=== PATIENT | male | born 1970 | race Caucasian/White ===

== ENCOUNTER 2022-10-05 15:42 | Emergency (ER) | payer OTHER, SELFPAY ==
[2022-10-05 15:48] VITALS: BP 168/98; PULSE 93; RESP 16; TEMP 36.8; O2SAT 99; BMI 43.0
--- NOTE | 2022-10-05 16:06 | ED_ITS ---
HPI - GI Bleed General: Chief complaint: GI Bleed Stated complaint: bloody stool Time Seen by Provider: 10/05/22 15:46 Source: patient Mode of arrival: ambulatory History of Present Illness: 51-year-old male presents emergency room complaining of 3 episodes of bloody stools. He felt dizzy. He felt a little better reports after eating. No vomiting no diarrhea no fever sweats chills no abdominal pain he has had probably hemorrhoids in the past no active hemorrhoids that he has noticed. No dysuria urgency or frequency or hematuria. MD complaint: gross hematochezia Onset (ago): hour(s) Pain Consistency: intermittent Severity: mild Relieving factors: none Exacerbating factors: none Associated symptoms: Denies abdominal pain, chills, easy bruising, epistaxis, fever(s), headache(s), malaise, nausea, other bleeding, rash, syncope, vomiting or weakness Treatments Prior to Arrival: none Review of Systems Const: Denies: fever(s), chills or malaise ENMT: Denies: epistaxis Card: Denies: syncope Resp: Denies: dyspnea, productive cough or non-productive cough GI: Denies: abdominal pain, nausea or vomiting : Denies: flank pain, dysuria, urinary frequency or urinary urgency Skin/Breast: Denies: rash Neuro: Denies: headache(s) Tomi/Lymph: Denies: easy bruising PFS ED PFSH: Medical History (Updated 10/05/22 @ 17:05 by Jose Alejo DO) No significant past medical history Surgical History (Updated 10/05/22 @ 16:19 by Jose Alejo DO) No pertinent past surgical history Physical Exam Const: COMMON NORMALS: no acute distress GENERAL APPEARANCE: cooperative and comfortable ORIENTATION/CONSCIOUSNESS: Yes awake, Yes oriented to person, Yes oriented to place and Yes oriented to time HENMT: COMMON NORMALS: normocephalic, atraumatic and hearing grossly normal bilaterally HEAD & SCALP: normocephalic and atraumatic Resp: COMMON NORMALS: normal respiratory effort, No retractions, No use of accessory muscles and clear to auscultation bilaterally AUSCULTATION: clear to auscultation bilaterally Cardio: COMMON NORMALS: regular rate, regular rhythm and No murmurs present (Cardio) RATE: regular rate RHYTHM: regular rhythm GI: COMMON NORMALS: Soft to palpation and No hepatosplenomegaly present AUSCULTATION: Yes normoactive bowel sounds PALPATION: Yes Soft to palpation, No Tenderness to palpation present (GI), No Guarding due to palpation present (GI) and Yes No hepatosplenomegaly present RECTAL EXAM: Yes visual inspection normal OTHER: 5 mm round ulcer at the rectal verge at approximately the 6 o'clock position no active bleeding no bright red blood per rectum noted no inflamed or thrombosed hemorrhoids Extremity: COMMON NORMALS: normal to inspection, capillary refill normal, no clubbing, cyanosis or edema, no calf tenderness and no pedal edema Neuro: SENSORIUM/ORIENTATION: Yes oriented to person, Yes oriented to place and Yes oriented to time Skin: COMMON NORMALS: no rashes or lesions noted GENERAL SKIN EXAM: no rashes or lesions noted Course Vital Signs: Vital signs: Vital Signs Temperature 98.2 F 10/05/22 15:48 Pulse Rate 93 10/05/22 15:48 Respiratory Rate 16 10/05/22 15:48 Blood Pressure 168/98 10/05/22 15:48 Pulse Oximetry 99 10/05/22 15:48 Oxygen Delivery Me thod 10/05/22 15:48 MDM - GI Bleed Medical Decision Making Hemoglobin normal CT does not show any significant abnormalities no diverticulitis no evidence of mass. On exam there was no perirectal abscess or hemorrhoid. There is an ulcerated area adjacent to the rectum where I suspect blood is coming from. At this point can use topical [id number] antibiotic ointment for that. He did have a colonoscopy about 3 to 4 years ago which he states was normal follow-up with his primary care doctor is a family history of colon cancer. Advised patient there is no masses or abnormality seen in the CT at this time. Also advised that his hemoglobin is stable. If he has persistent bleeding follow-up primary care doctor for recheck of his blood counts. Medical Records I reviewed the patient's medical records. Lab Data I reviewed the patient's lab results. 10/05/22 16:00 10/05/22 16:00 Radiology Impressions Abdomen/Pelvis CT 10/05/22 16:06 IMPRESSION: 1. Negative for acute inflammatory process in the abdomen or pelvis. 2. Central abdominal mesentery edema with several subcentimeter lymph nodes may reflect a chronic inflammatory process such as sclerosing mesenteritis. Laboratory Results WBC 13.4 10^3/uL (4.0-10.0) H 10/05/22 16:00 RBC 4.15 10^6/uL (4.1-5.3) 10/05/22 16:00 Hgb 13.1 g/dL (11.7-16.6) 10/05/22 16:00 Hct 39.3 % (42.0-52.0) L 10/05/22 16:00 MCV 94.7 fl (80-94) H 10/05/22 16:00 MCH 31.6 pg (28.0-34.0) 10/05/22 16:00 MCHC 33.3 g/dL (30.0-36.0) 10/05/22 16:00 RDW 12.5 % (12.1-15.1) 10/05/22 16:00 Plt Count 269 10^3/cmm (130-400) 10/05/22 16:00 MPV 9.6 fL (7.4-10.4) 10/05/22 16:00 Neut % (Auto) 73.1 % 10/05/22 16:00 Lymph % (Auto) 17.4 % 10/05/22 16:00 [place] % (Auto) 6.1 % 10/05/22 16:00 Eos % (Auto) 2.3 % 10/05/22 16:00 Baso % (Auto) 0.8 % 10/05/22 16:00 Neut # (Auto) 9.79 10^3/uL (1.8-7.7) H 10/05/22 16:00 Lymph # (Auto) 2.3 10^3/uL (0.8-4.8) 10/05/22 16:00 [place] # (Auto) 0.8 10^3/uL (0.2-0.9) 10/05/22 16:00 Eos # (Auto) 0.3 10^3/uL (0.0-0.8) 10/05/22 16:00 Baso # (Auto) 0.1 10^3/uL (0.0-0.1) 10/05/22 16:00 Nucleated RBC % (auto) 0 % 10/05/22 16:00 Nucleated RBCs # 0.0 /100WBC 10/05/22 16:00 Sodium 139 mmol/L (136-145) 10/05/22 16:00 Potassium 4.2 mmol/L (3.5-5.1) 10/05/22 16:00 Chloride 102 mmol/L (98-107) 10/05/22 16:00 Carbon Dioxide 28 mmol/L (22-29) 10/05/22 16:00 Anion Gap 13.2 (5-19) 10/05/22 16:00 BUN 14 mg/dL (6-20) 10/05/22 16:00 Creatinine 0.9 mg/dL (0.7-1.2) 10/05/22 16:00 GFR Calculation 89.3 mL/min (90-130) L 10/05/22 16:00 Glucose 142 mg/dL (65-115) H 10/05/22 16:00 Calculated Osmolality 291 mOsm/kg (285-295) 10/05/22 16:00 Calcium 9.0 mg/dL (8.5-10.5) 10/05/22 16:00 Discharge Plan Discharge Patient Disposition: Home Clinical Impression: Bright red rectal bleeding Condition: Stable Discharge Orders: Discharge ED (Routine); Ordered 10/05/22 Ordered By: Jose Alejo Discharge Diet: Usual diet Discharge Activity: Increase activity as tolerated Patient Instructions: Opioid Safety, Pain Management Activity Restrictions/Additional Instructions: You are seen today for rectal bleeding CT did not show any acute pathology no masses or diverticulitis. On exam there is a small ulcerated area adjacent to the verge of the rectum where I suspect your bleeding may be coming from. If bleeding persist recheck with your primary care doctor. Your hemoglobin today was stable. You should also verify with your primary care doctor when your next colonoscopy is due. Use topical antibiotic ointment on the rectal area to treat the ulcerated area seen on exam. Coding Level of Care Code ED [facility] for Chg Fwd Exam Detailed
--- NOTE | 2022-10-05 16:06 | CTR_ITS ---
PROCEDURE INFORMATION: Exam: CT Abdomen And Pelvis Without Contrast Exam date and time: 10/05/2022 4:18 PM Age: 51 years old Clinical indication: Other: Blood in stools; Additional info: Abdominal pain TECHNIQUE: Imaging protocol: Computed tomography of the abdomen and pelvis without contrast. Radiation optimization: All CT scans at this facility use at least one of these dose optimization techniques: automated exposure control; mA and/or kV adjustment per patient size (includes targeted exams where dose is matched to clinical indication); or iterative reconstruction. Other protocol: This patient has received 0 known CTs and 0 known cardiac nuclear medicine studies in the 12 months prior to the current study. COMPARISON: US scrotum [id number] 04/25/2019 8:25 AM RADIATION DOSE METRICS: Total DLP (mGy-cm): 1300.53 FINDINGS: Liver: Normal. No mass. Gallbladder and bile ducts: Normal. No calcified stones. No ductal dilation. Pancreas: Normal. No ductal dilation. Spleen: Normal. No splenomegaly. Adrenal glands: Normal. No mass. Kidneys and ureters: Normal. No hydronephrosis. Stomach and bowel: Unremarkable. No obstruction. No mucosal thickening. Appendix: No evidence of appendicitis. Intraperitoneal space: Unremarkable. No free air. No significant fluid collection. Vasculature: Unremarkable. No abdominal aortic aneurysm. Lymph nodes: Central abdominal mesentery edema with several subcentimeter lymph nodes may reflect a chronic inflammatory process such as sclerosing mesenteritis. Urinary bladder: Unremarkable as visualized. Reproductive: Unremarkable as visualized. Bones/joints: Unremarkable. No acute fracture. Soft tissues: Unremarkable. CT/CT abdomen pelvis con [id number] IMPRESSION: 1. Negative for acute inflammatory process in the abdomen or pelvis. 2. Central abdominal mesentery edema with several subcentimeter lymph nodes may reflect a chronic inflammatory process such as sclerosing mesenteritis.
[2022-10-05 16:07] LABS: Basophils # 0.1 10^3/uL (0.0-0.1); Basophils % 0.8 %; Eosinophils # 0.3 10^3/uL (0.0-0.8); Eosinophils % 2.3 %; Hematocrit 39.3 % (42.0-52.0); Hemoglobin 13.1 g/dL (11.7-16.6); Lymphocytes # 2.3 10^3/uL (0.8-4.8); Lymphocytes % 17.4 %; Mean Corpuscular HGB Conc 33.3 g/dL (30.0-36.0); Mean Corpuscular Hemoglobin 31.6 pg (28.0-34.0); Mean Corpuscular Volume 94.7 fl (80-94); Mean Platelet Volume 9.6 fL (7.4-10.4); Monocytes # 0.8 10^3/uL (0.2-0.9); Monocytes % 6.1 %; Neutrophils # 9.79 10^3/uL (1.8-7.7); Neutrophils % 73.1 %; Nucleated Red Blood Cells % 0 %; Platelet Count 269 10^3/cmm (130-400); Red Blood Count 4.15 10^6/uL (4.1-5.3); Red Cell Distribution Width 12.5 % (12.1-15.1); White Blood Count 13.4 10^3/uL (4.0-10.0)
[2022-10-05 16:28] LABS: Anion Gap 13.2 (5-19); Blood Urea Nitrogen 14 mg/dL (6-20); Carbon Dioxide 28 mmol/L (22-29); Chloride 102 mmol/L (98-107); Glomerular Filtration Rate 89.3 mL/min (90-130); Glucose 142 mg/dL (65-115); Osmolality Calculated 291 mOsm/kg (285-295); Potassium 4.2 mmol/L (3.5-5.1); Sodium 139 mmol/L (136-145)
== END 2022-10-05 17:29 | disposition home or self-care (01) ==
PROVIDERS: Physician Assistant; Emergency Provider Family Medicine
DX: K62.5 Hemorrhage of anus and rectum (principal)
CPT/HCPCS: 36415; 74176; 80048; 85025; 99284

== ENCOUNTER → 2022-10-08 15:23 | Outpatient (BNVA) | payer OTHER, SELFPAY | PROVIDERS: PCP Family Medicine; Visit Provider Clinical Nurse Specialist Adult Health | DX: K62.5 Hemorrhage of anus and rectum (principal) | CPT/HCPCS: 80053; 85025 ==

== ENCOUNTER → 2025-04-07 13:11 | Outpatient (BNVA) | payer OTHER, SELFPAY | PROVIDERS: PCP Family Medicine; Visit Provider Nurse Practitioner | DX: B00.1 Herpesviral vesicular dermatitis (principal) | CPT/HCPCS: 86695; 86696 ==